=== PATIENT | male | born 1975 | race Caucasian/White ===

== ENCOUNTER 2018-03-02 21:32 | Emergency (ER) | payer OTHER ==
[~2018-03-02] VITALS: Ht 175.3 cm; Wt 120.2 kg
== END 2018-03-02 23:59 | disposition home or self-care (01) ==
LOC: ER 21:32
DX: H60.8X1 Other otitis externa, right ear (principal); H66.91 Otitis media, unspecified, right ear

== ENCOUNTER 2022-12-28 20:40 | Emergency (ER) | payer OTHER ==
[~2022-12-28] VITALS: Ht 172.7 cm; Wt 108.0 kg
[~2022-12-28 20:40] MED LIST: ALTACE10 MG; ALTACE10 MG PO; AMOX1TAB12 PO; FLAGYL500MG PO; INTESTINEX1 CA1 PO; PROTONIX40 MG PO; ZANTAC150 M3 PO
[2022-12-28] MEDS ORDERED: JANUMET 50-5001 EACH PO (21:09)
[2022-12-28] MEDS ORDERED: LIPITOR20 MG PO (21:09)
[2022-12-28] MEDS ORDERED: DIOVAN HCT 1601 EACH PO (21:09)
== END 2022-12-28 23:55 | disposition home or self-care (01) ==
LOC: ER 20:40
DX: N39.0 Urinary tract infection, site not specified (principal); R53.81 Other malaise; Z20.822 Contact with and (suspected) exposure to COVID-19; I10 Essential (primary) hypertension; E11.9 Type 2 diabetes mellitus without complications; Z79.84 Long term (current) use of oral hypoglycemic drugs; Z88.6 Allergy status to analgesic agent

== ENCOUNTER 2025-01-22 19:10 | Emergency (ER) | payer OTHER ==
[~2025-01-22] VITALS: Ht 175.3 cm; Wt 108.9 kg
[~2025-01-22 19:10] MED LIST changes: +DIOVAN HCT 1601 EACH PO; +JANUMET 50-5001 EACH PO; +LIPITOR20 MG PO
[2025-01-22] MEDS ORDERED: FAMOTIDINE/PF 20 MG/2 ML VIAL IV ONE (19:45)
[2025-01-22] MEDS ORDERED: 0.9 % SODIUM CHLORIDE 500 ML IV ONE (19:45)
[2025-01-22] MEDS ORDERED: ONDANSETRON HCL 2 MG/ML VIAL IV ONE (19:45)
[2025-01-22 20:40] LABS: BASO % 0.3 % (0.1-1.2); EOS # 0.08 (0.04-0.54); EOS % 0.9 % (0.7-7.0); LYMPH # 1.79 (1.18-3.74); LYMPH % 19.2 % (19.3-53.1); MEAN PLATELET VOLUME 9.90 fl (9.4-12.4); MONO # 0.88 (0.24-0.82); MONO % 9.5 % (4.7-12.5); NEUT # 6.48 (1.56-6.13); NEUT % 69.6 % (34.0-71.1); RED CELL DISTRIBUTION WIDTH 13.2 % (11.6-14.4)
[2025-01-22 20:53] LABS: ALT/SGPT 46.0 U/L (12-78); AST/SGOT 16.0 U/L (15-37); BILIRUBIN TOTAL 0.63 mg/dL (0.3-1.2); BUN CREA RATIO 14.0 (7.0-25.0); CREATININE SERUM 1.58 mg/dL (0.70-1.30); GFR 46.47; GLOBULINA 3.5 G/DL (2.4-3.5); GLUCOSE FASTING 136.0 mg/dL (65-100); OSMOLALITY SERUM 290.0 MOSM/KG (275-295)
[2025-01-22] MEDS ORDERED: TAMSULOSIN HCL 0.4 MG CAP PO ONE (21:30)
[2025-01-22 21:43] LABS: URINE APPEARANCE Cloudy; URINE BILIRRUBIN Negative (NEGATIVE); URINE BLOOD Large; URINE COLOR Yellow; URINE GLUCOSE Negative (NEGATIVE); URINE KETONE Trace (NEGATIVE); URINE LEUKOCYTE Trace; URINE NITRATE Negative; URINE PROTEIN 30 (NEGATIVE); URINE UROBILINOGEN 1.0 E.U./dl
[2025-01-22 21:44] LABS: URINE BACTERIA 29.9 uL (0.0-1933); URINE EPITHELIAL CELLS 4.1 uL (0.0-38.8); URINE RBC 3960.2 uL (0.0-20.8); URINE WBC 22.3 uL (0.0-23.2)
[2025-01-22 21:50] LABS: URINE CAST 0.00 uL (0.0-1.40)
[2025-01-22] MEDS ORDERED: TAMS0.4C PO (22:16)
[2025-01-22] MEDS ORDERED: PERCOGESIC EXT1 EACH PO (22:16)
[2025-01-22] MEDS ORDERED: DUI500 PO (22:16)
== END 2025-01-22 23:08 | disposition home or self-care (01) ==
LOC: ER 19:10
PROVIDERS: General Practice
DX: R10.2 Pelvic and perineal pain (principal); N20.1 Calculus of ureter; R10.9 Unspecified abdominal pain; I10 Essential (primary) hypertension; E11.9 Type 2 diabetes mellitus without complications; Z79.84 Long term (current) use of oral hypoglycemic drugs; Z88.6 Allergy status to analgesic agent
CPT/HCPCS: 36415; 74177; Q9965